=== PATIENT | female | born 1945 | race Caucasian/White ===

== ENCOUNTER → 2016-03-26 | Outpatient (CLI) | payer OTHER ==
--- NOTE | 2016-03-26 16:42 | MAMMOGRAPHY REPORT ---
UNILATERAL LEFT DIGITAL SCREENING MAMMOGRAM TOMOSYNTHESIS WITH CAD: 03/26/2016 CLINICAL HISTORY: Asymptomatic. Personal history of breast cancer. TECHNIQUE: Left breast tomosynthesis in addition to standard 2D mammography was performed. Current doyle singer was also evaluated with a Computer Aided Detection (CAD) system. COMPARISON: Comparison is made to exam dated: 03/21/2015 mammogram - [facility]. BREAST COMPOSITION: There are scattered areas of fibroglandular density in the left breast. FINDINGS: There is a stable grouping of microcalcifications in the medial, far posterior left breast , unchanged dating back to at least 11/08/2010, therefore likely benign. There is stable nodularity in the lateral left breast. No new suspicious mass, architectural distortion or cluster of microca lcifications is seen. IMPRESSION: ACR BI-RADS CATEGORY 1: NEGATIVE There is no mammographic evidence of malignancy. A 1 year screening mammogram is recommended. The p atient will receive written notification of the results. Approximately 10% of breast cancers are not detected with mammography. A negative mammographic repor t should not delay biopsy if a clinically suggestive mass is present. Edilia Coffman M.D. ay/:03/26/2016 15:24:04 Supervisor Body Assembly: Gail Jacob, [facility] letter sent: Normal 1/2 BI-RADS Code: ACR BI-RADS Category 1: Negative
== END | disposition home or self-care (01) ==
LOC: C.MAMM 10:43
PROVIDERS: ATTEND Internal Medicine
DX: Z12.31 Encounter for screening mammogram for malignant neoplasm of breast (principal)

== ENCOUNTER → 2016-05-17 | Outpatient (CLI) | payer OTHER ==
--- NOTE | 2016-05-17 10:52 | DIAGNOSTIC IMAGING REPORT ---
GI SERIES W/AIR ROUTINE CLINICAL HISTORY: T17.800A Aspiration into lower respiratory traction Tu or Wdysphagia COMPARISON STUDY: None FLUOROSCOPY TIME: 2.0 minutes. FINDINGS: Patient initiates swallowing function well. There is no evidence for aspiration. Esophagus normal in course and caliber. Gastroesophageal junction is normal. Size and configuration stomach are normal. Duodenal bulb fills well and is negative for ulceration. Duodenal sweep is unremarkable. IMPRESSION: Normal study. No evidence for aspiration. Electronically signed by: Jacob Walters M.D. 05/17/2016 10:50 AM Dictated Date/Time: 05/17/2016 10:49 AM
--- NOTE | 2016-05-17 13:21 | SWALLOWING EVALUATION ---
HISTORY: This 70 year-old female was referred for a VFSS at [facility] in order to address c/o persistent chronic cough. The patient has a PMH significant for hypertension, hypercholesterolemia and DAVIDA. Currently the patient's diet level is regular. The patient denies all s/s dysphagia and aspiration as presented to her. She denies indigestion and reflux. She denies globus sensation. She denies voice changes. Her sole complaint is the cough. REPORT: The patient completed an UGI Series and I was present throughout. There was no aspiration during the study. The patient's epiglottis was seen fully inverting and airway protection was complete. The patient had no pharyngeal bolus retention after swallowing. The Radiologist report on the UGI Series is that it resulted normally. SUMMARY/RECOMMENDATIONS: This patient presents with no s/s or c/o oral-pharyngeal dysphagia. The following is recommended: 1. Consider Otolaryngological consultation for chronic cough. 2. Regular diet as tolerated. A summary of the results and recommendations was discussed with the patient immediately following the study. She is anticipating f/u with the referring physician. Thank you for referral of this patient. Please contact me at if any additional information is needed.
--- NOTE | 2016-05-17 13:27 | SWALLOWING EVALUATION ---
HISTORY: This 70 year-old female was referred for a VFSS at [facility] in order to address c/o persistent chronic cough. The patient has a PMH significant for hypertension, hypercholesterolemia and DAVIDA. Currently the patient's diet level is regular. The patient denies all s/s dysphagia and aspiration as presented to her. She denies indigestion and reflux. She denies globus sensation. She denies voice changes. Her sole complaint is the cough. REPORT: The patient completed an UGI Series and I was present throughout. There was no aspiration during the study. The patient's epiglottis was seen fully inverting and airway protection was complete. The patient had no pharyngeal bolus retention after swallowing. The Radiologist report on the UGI Series is that it resulted normally. SUMMARY/RECOMMENDATIONS: This patient presents with no s/s or c/o oral-pharyngeal dysphagia. Therefore, the Video Swallow Study portion of the testing was deferred for now. The following is recommended: 1. Consider Otolaryngological consultation for chronic cough. 2. Regular diet as tolerated. A summary of the results and recommendations was discussed with the patient immediately following the study. She is anticipating f/u with the referring physician. Thank you for referral of this patient. Please contact me at if any additional information is needed.
== END | disposition home or self-care (01) ==
LOC: C.RAD 09:42
PROVIDERS: ATTEND Internal Medicine
DX: T17.800A Unspecified foreign body in other parts of respiratory tract causing asphyxiation, initial encounter (principal); X58.XXXA Exposure to other specified factors, initial encounter

== ENCOUNTER → 2016-06-18 | Outpatient (CLI) | payer OTHER ==
[2016-06-18 12:22] LABS: BASO % 0.4 %; BASO ABS # 0.02 K/uL (0-0.2); COMPLETE YES; EOS % 3.4 %; IG% 0.4 %; LYMPH % 31.9 %; LYMPH ABS # 1.78 K/uL (1.2-3.4); MEAN CELL VOLUME 90.5 fL (80-100); MEAN CORPUSCULAR HEMOGLOBIN 30.2 pg (25-34); MEAN CORPUSCULAR HGB CONC 33.3 g/dl (32-36); MEAN PLATELET VOLUME 9.1 fL (7.4-10.4); MONO % 8.2 %; NEUT % 55.7 %; PLATELET COUNT 236 K/uL (130-400); RED BLOOD COUNT 4.31 M/uL (4.2-5.4); WHITE BLOOD COUNT 5.58 K/uL (4.8-10.8)
[2016-06-18 12:36] LABS: ALT/SGPT 48 U/L (12-78); BLOOD UREA NITROGEN 16 mg/dl (7-18); BUN/CREATININE RATIO 25.1 (10-20); CARBON DIOXIDE 27 mmol/L (21-32); CHLORIDE 106 mmol/L (98-107); CHOLESTEROL 214 mg/dl (0-200); CREATININE 0.63 mg/dl (0.60-1.20); GLUCOSE 107 mg/dl (70-99); POTASSIUM 3.7 mmol/L (3.5-5.1); SODIUM 143 mmol/L (136-145); TRIGLYCERIDES 228 mg/dl (0-150); VERY LOW DENSITY LIPOPROT CALC 46 mg/dl
[2016-06-18 12:47] LABS: ALB/GLOB RATIO 1.1 (0.9-2); ALKALINE PHOSPHATASE 78 U/L (45-117); AST/SGOT 24 U/L (15-37); CHOLESTEROL/HDL RATIO 4.4; HDL CHOLESTEROL 49 mg/dl; LDL CHOLESTEROL CALCULATED 119 mg/dl
[2016-06-18 12:57] LABS: ESTIMATED AVERAGE GLUCOSE 128 mg/dl; HA1C FLAG Normal (Normal)
[2016-06-18 13:23] LABS: CALCIUM 9.6 mg/dl (8.5-10.1)
--- NOTE | 2016-06-22 11:44 | CODING QUERY MEDICAL NECESSITY ---
SUPPORTING DIAGNOSIS NEEDED A supporting diagnosis is required for the test/procedure performed on this patient in order for us to be reimbursed by the patient's insurance. Please provide a supporting diagnosis for the following test/procedure listed below next to the test name along with your signature. *If there is no additional diagnosis for this patient that would support the following test/procedure please document that below next to the test/procedure. Test(s)/Procedure(s) that require a supporting diagnosis: DOS 06/18 * Hba1c DIAGNOSIS: * Lipids DIAGNOSIS: Provider Signature: Date: Thank you [facility] Once completed, please kindly fax back to [phone] For questions please call [phone]
== END | disposition home or self-care (01) ==
LOC: C.LABPBG 08:11
PROVIDERS: ATTEND Internal Medicine
DX: E04.1 Nontoxic single thyroid nodule (principal); R73.03 Prediabetes; E78.5 Hyperlipidemia, unspecified

== ENCOUNTER → 2017-05-10 | Outpatient (CLI) | payer OTHER ==
--- NOTE | 2017-05-10 13:55 | MAMMOGRAPHY REPORT ---
UNILATERAL LEFT DIGITAL SCREENING MAMMOGRAM TOMOSYNTHESIS WITH CAD: 05/10/2017 CLINICAL HISTORY: Asymptomatic. Personal history of breast cancer. TECHNIQUE: Breast tomosynthesis in addition to standard 2D mammography was performed. Current study was also evaluated with a Computer Aided Detection (CAD) system. COMPARISON: Comparison is made to exams dated: 03/26/2016 mammogram, 03/21/2015 mammogram - [facility], 11/20/2013 mammogram, 11/12/2012 mammogram, 11/12/2011 mammogram, and 11/08/2010 mamm ogram - [facility]. BREAST COMPOSITION: There are scattered areas of fibroglandular density in the left breast. FINDINGS: There are no suspicious masses, calcifications, or areas of architectural distortion noted in the left breast. There has been no significant interval change compared to prior exams. IMPRESSION: ACR BI-RADS CATEGORY 1: NEGATIVE There is no mammographic evidence of malignancy in the left breast. A 1 year screening mammogram is r ecommended. The patient will receive written notification of the results. Approximately 10% of breast cancers are not detected with mammography. A negative mammographic report should not delay biopsy if a clinically suggestive mass is present. Franchesca Rios M.D. ah/:05/10/2017 11:00:25 Airport Operations Officer: Missy LIN(Jane)(Veena), [facility] letter sent: Normal 1/2 BI-RADS Code: ACR BI-RADS Category 1: Negative
== END | disposition home or self-care (01) ==
LOC: C.MAMM 10:10
PROVIDERS: ATTEND Internal Medicine
DX: Z12.31 Encounter for screening mammogram for malignant neoplasm of breast (principal); Z85.3 Personal history of malignant neoplasm of breast

== ENCOUNTER → 2017-05-10 | Outpatient (CLI) | payer OTHER ==
--- NOTE | 2017-05-10 10:38 | DIAGNOSTIC IMAGING REPORT ---
TWO VIEW CHEST CLINICAL HISTORY: Sinus pressure. Cough. FINDINGS: PA and lateral chest radiographs are compared to study dated 11/15/2014. Correlation is made with chest CT dated 07/21/2015. The PA view is degraded by patient rotation. The heart is mildly enlarged and there is atherosclerotic calcification of the thoracic aorta. The pulmonary vasculature is noncongested. Linear atelectasis versus scarring is seen in the left midlung. No airspace consolidation or pleural effusion is identified. There is no pneumothorax. The skeletal structures are osteopenic. Degenerative change is seen throughout the thoracic spine. IMPRESSION: Mild cardiac enlargement with no active disease in the chest. Electronically signed by: Warren Carter M.D. 05/10/2017 10:37 AM Dictated Date/Time: 05/10/2017 10:35 AM
--- NOTE | 2017-05-10 10:40 | DIAGNOSTIC IMAGING REPORT ---
PARANASAL SINUSES 4 VIEWS CLINICAL HISTORY: Sinus pressure. FINDINGS: 4 views of the paranasal sinuses are obtained. No prior studies are available for comparison at the time of dictation. There is no radiographic evidence of paranasal sinus disease. The sinuses are clear as visualized. The bony orbits appear intact. The mastoid air cells appear well-pneumatized. The imaged calvarium is preserved. IMPRESSION: There is no radiographic evidence of significant paranasal sinus disease. Electronically signed by: Warren Carter M.D. 05/10/2017 10:38 AM Dictated Date/Time: 05/10/2017 10:37 AM
== END | disposition home or self-care (01) ==
LOC: C.RAD1850 09:29
PROVIDERS: ATTEND Internal Medicine Pulmonary Disease
DX: J34.89 Other specified disorders of nose and nasal sinuses (principal)

== ENCOUNTER → 2017-07-03 | Outpatient (CLI) | payer OTHER ==
[2017-07-03 14:07] LABS: HEMOGLOBIN A1C 6.2 % (4.5-5.6)
[2017-07-03 14:35] LABS: ALBUMIN 4.1 gm/dl (3.4-5.0); ALT/SGPT 40 U/L (12-78); AST/SGOT 22 U/L (15-37); BLOOD UREA NITROGEN 14 mg/dl (7-18); CALCIUM 8.7 mg/dl (8.5-10.1); CARBON DIOXIDE 28 mmol/L (21-32); CHOLESTEROL 212 mg/dl (0-200); CREATININE 0.75 mg/dl (0.60-1.20); GLUCOSE 99 mg/dl (70-99); POTASSIUM 3.8 mmol/L (3.5-5.1); SODIUM 139 mmol/L (136-145)
[2017-07-03 14:46] LABS: ALKALINE PHOSPHATASE 83 U/L (45-117); LDL CHOLESTEROL CALCULATED 119 mg/dl; TOTAL PROTEIN 7.7 gm/dl (6.4-8.2)
== END | disposition home or self-care (01) ==
LOC: C.LABPBG 07:53
PROVIDERS: ATTEND Physician Assistant Medical
DX: Z00.00 Encounter for general adult medical examination without abnormal findings (principal); I10 Essential (primary) hypertension; F41.1 Generalized anxiety disorder; E78.5 Hyperlipidemia, unspecified; Z11.59 Encounter for screening for other viral diseases; R73.03 Prediabetes